=== PATIENT | male | born 1995 | race Caucasian/White ===

== ENCOUNTER 2023-05-14 05:47 | Emergency (ER) | payer SELFPAY ==
[~2023-05-14] VITALS: Ht 177.8 cm; Wt 104.3 kg
[2023-05-14] MEDS ORDERED: MELOXICAM15 MG PO (06:01)
[2023-05-14] MEDS ORDERED: AMOX-CLAV 875-1 EACH PO (06:01)
== END 2023-05-14 06:24 | disposition home or self-care (01) ==
LOC: ED 05:47
DX: K04.7 Periapical abscess without sinus (principal); K02.9 Dental caries, unspecified; F17.200 Nicotine dependence, unspecified, uncomplicated